=== PATIENT | male | born 1975 | race Caucasian/White ===

== ENCOUNTER 2021-09-09 18:17 | Emergency (ER) | payer OTHER ==
[~2021-09-09] VITALS: Ht 182.9 cm; Wt 74.8 kg
[2021-09-09 18:49] LABS: ABSOLUTE BASOPHILS 0.1 thou/uL (0.0-0.2); ABSOLUTE EOSINOPHILS 0.3 thou/uL (0.0-0.7); ABSOLUTE LYMPHOCYTES 2.8 thou/uL (0.8-5.3); ABSOLUTE MONOCYTES 0.9 thou/uL (0.0-1.2); ABSOLUTE NEUTROPHILS 7.9 thou/uL (1.6-8.1); BASOPHILS 0.6 %; EOSINOPHILS 2.5 %; HEMOGLOBIN 14.4 gm/dL (14.0-18.0); LYMPHOCYTES 23.7 %; MCH 33.2 pg (26.0-34.0); MCHC 34.3 g/dL (28.0-37.0); MCV 96.7 fL (80.0-100.0); MONOCYTES 7.4 %; MPV 8.6 fl. (7.2-11.1); NUCLEATED RBCS 0 /100WBC; PLATELET COUNT* 190 thou/uL (150-400); POLYS 65.8 %; RBC 4.35 mil/uL (4.50-6.00); RDW-CV 13.1 % (10.5-14.5)
[2021-09-09 18:54] LABS: CALCIUM 9.6 mg/dL (8.5-10.1); POTASSIUM 3.3 mmol/L (3.5-5.1)
[2021-09-09 18:59] LABS: ALBUMIN 3.9 g/dL (3.4-5.0); TOTAL BILIRUBIN 0.3 mg/dL (<0.1-1.0); TOTAL PROTEIN 7.5 g/dL (6.4-8.2)
[2021-09-09 20:40] VITALS: BP 123/72
== END 2021-09-09 20:40 | disposition home or self-care (01) ==
LOC: M.ERS 18:17
PROVIDERS: Physician Assistant
DX: R10.84 Generalized abdominal pain (principal); R19.7 Diarrhea, unspecified; Z88.0 Allergy status to penicillin